=== PATIENT | female | born 1995 | race Two or more races ===

== ENCOUNTER 2017-05-18 10:01 | Emergency (ER) | payer MEDICAID ==
[~2017-05-18] VITALS: Ht 160 cm; Wt 90.7 kg
[2017-05-18 10:53] LABS: Urine RBC None Seen /hpf (0 - 4)
[2017-05-18 11:02] LABS: Albumin 4.1 g/dL (3.4-5.0); BUN/Creatinine Ratio 18.8; Basophils # (auto) 0 uL; Basophils % (auto) 0.6 % (0.0-2.0); Bilirubin, Total 0.7 mg/dL (0.2-1.0); CONDITION Y; Calcium 9.3 mg/dL (8.5-10.1); Eosinophils # (auto) 0 uL; Eosinophils % (auto) 0.5 % (0.0-7.0); Hematocrit 37.6 % (36.0-46.0); Hemoglobin 12.9 g/dL (12.2-16.2); Lymphocytes # (auto) 1.7 uL; Lymphocytes % (auto) 24.3 % (10.0-50.0); Mean Corpuscular Hemoglobin 30.7 pg (28.0-32.0); Mean Corpuscular Hgb Conc. 34.2 g/dL (32.0-36.0); Mean Corpuscular Volume 89.9 fL (80.0-100.0); Mean Platelet Volume 9.6 fL (7.4-10.4); Monocytes # (auto) 0.4 uL; Neutrophils # (auto) 4.9 uL; Neutrophils % (auto) 69.6 % (37.0-80.0); Platelet Count (auto) 213 10^3/uL (140-450); Potassium 3.3 mmol/L (3.5-5.1); Red Cell Distribution Width 12.1 % (11.6-16.0)
[2017-05-18 11:02] LABS: Urine Bilirubin Negative (Negative); Urine Blood Negative /uL (Negative); Urine Color Yellow (Yellow); Urine Glucose Normal (Normal); Urine Ketone 1+ (Negative); Urine Mucus FEW (None Seen); Urine Nitrite Negative (Negative); Urine Squamous Epithelial Cell MOD /hpf (<5); Urine Urobilinogen Normal (Negative)
[2017-05-18 12:37] VITALS: BP 117/67
[2017-05-18] MEDS ORDERED: POTASSIUM CHL 20 Meq TABLET PO ONE (13:45)
== END 2017-05-18 14:46 | disposition home or self-care (01) ==
LOC: ER 10:01
DX: O20.8 Other hemorrhage in early pregnancy (principal); I60.9 Nontraumatic subarachnoid hemorrhage, unspecified; E87.6 Hypokalemia; Z3A.08 8 weeks gestation of pregnancy
CPT/HCPCS: 36415; 76705; 76805; 80053; 81001; 84702; 85025